=== PATIENT | male | born 1950 | race Caucasian/White ===

== ENCOUNTER 2016-10-05 19:38 | Emergency (ER) | payer MEDICAID, MEDICARE ==
[~2016-10-05] VITALS: Ht 175.3 cm; Wt 99.0 kg
[2016-10-05 19:40] VITALS: BP_SYST 180; PULSE 111; RESP 16; TEMP 98.3; O2SAT 96
[2016-10-05 22:18] VITALS: BP 180/72
== END 2016-10-06 00:52 | disposition left against medical advice (07) ==
LOC: NED 19:38
DX: R60.0 Localized edema (principal); Z53.29 Procedure and treatment not carried out because of patient's decision for other reasons
CPT/HCPCS: 99281